=== PATIENT | male | born 1980 ===

== ENCOUNTER → 2019-08-28 | Outpatient (CLI) | payer OTHER | LOC: MHCPAIN 14:10 | DX: G89.29 Other chronic pain (principal); M47.817 Spondylosis without myelopathy or radiculopathy, lumbosacral region; M54.16 Radiculopathy, lumbar region; M53.3 Sacrococcygeal disorders, not elsewhere classified | CPT/HCPCS: G0463 ==

== ENCOUNTER → 2019-09-11 | Outpatient (CLI) | payer OTHER | LOC: MHCPAIN 15:01 | DX: G57.02 Lesion of sciatic nerve, left lower limb (principal) | CPT/HCPCS: J1040 ==

== ENCOUNTER → 2019-10-16 | Outpatient (CLI) | payer OTHER | LOC: MHCPAIN 15:12 | DX: G89.29 Other chronic pain (principal); M47.817 Spondylosis without myelopathy or radiculopathy, lumbosacral region; M53.3 Sacrococcygeal disorders, not elsewhere classified | CPT/HCPCS: G0463 ==

== ENCOUNTER → 2019-10-31 | Outpatient (CLI) | payer OTHER | LOC: MHCPAIN 15:06 | DX: M54.5 Low back pain (principal) ==

== ENCOUNTER → 2019-11-06 | Outpatient (CLI) | payer OTHER | LOC: MHCPAIN 14:10 | DX: M47.817 Spondylosis without myelopathy or radiculopathy, lumbosacral region (principal); M53.3 Sacrococcygeal disorders, not elsewhere classified | CPT/HCPCS: G0463 ==

== ENCOUNTER → 2019-12-12 | Outpatient (CLI) | payer OTHER | LOC: MHCPAIN 12-05 15:18 | DX: M53.3 Sacrococcygeal disorders, not elsewhere classified (principal) | CPT/HCPCS: G0260; J1040; Q9967 ==

== ENCOUNTER → 2019-12-31 | Outpatient (CLI) | payer OTHER | LOC: MHCPAIN 14:20 | DX: M47.817 Spondylosis without myelopathy or radiculopathy, lumbosacral region (principal); M53.3 Sacrococcygeal disorders, not elsewhere classified | CPT/HCPCS: G0463 ==